=== PATIENT | female | born 1970 | race Caucasian/White ===

== ENCOUNTER → 2016-10-27 | Outpatient (CLI) | payer BC, OTHER ==
--- NOTE | 2016-10-28 10:23 | MRI ---
EXAM DESCRIPTION: Brain w/wo Contrast CLINICAL HISTORY: MS COMPARISON: None TECHNIQUE: Multiplanar, multi sequence MR images of the head are obtained with and without IV gadolinium contrast using standard imaging protocol. MS imaging protocol was performed. FINDINGS: The midline structures are not displaced. Sulci are age appropriate. The lateral, third, and fourth ventricles are normal in size, shape, and anatomic positioning. Normal palacios-white differentiation is seen. Normal flow voids are seen in the major intracranial vessels including the dural venous sinuses. There is an asymmetric 2.0 x 1.4 cm area of increased T2 signal in the left posterior fossa inferior to the cerebellopontine angle region is stable from previous exam without abnormal area of enhancement. This is unchanged from previous exam. No abnormal extra-axial fluid collections are seen. There are less than 10 foci of increased FLAIR signal in the periventricular white matter and white matter of the centrum semiovale measuring less than 4 mm relatively stable and size and number compared previous. The corpus callosum is unremarkable. No abnormal signal is seen in the marie or brachium pontis region. There are no abnormal areas of enhancement. No black holes are identified. The pituitary is unremarkable. There is mild mucosal thickening in the left frontal sinus and posterior sphenoid sinus region. The visualized orbits and mastoid air cells are unremarkable. IMPRESSION: Minimal periventricular white matter signal changes are seen. This is unchanged from previous exam in a patient with clinical history of multiple sclerosis. No new lesions or active enhancing demyelinating process is seen. Question prominent, asymmetric CSF space versus arachnoid cyst in the inferior left posterior fossa stable from previous. Mild subacute chronic sinus disease. Electronically signed by: Isaias Arreola MD 10/28/2016 10:22 AM CDT
== END | disposition home or self-care (01) ==
LOC: MRI 09:01
PROVIDERS: ATTEND Psychiatry & Neurology Neurology
DX: G35 Multiple sclerosis (principal)

== ENCOUNTER 2018-09-06 08:29 | Emergency (ER) | payer BC ==
[2018-09-06 09:51] VITALS: O2SAT 97
[2018-09-06] MEDS ORDERED: DEXAMETHASONE INJ 10 MG/ML VIAL IV ONE (10:31)
--- NOTE | 2018-09-06 12:04 | ED.PDOC ---
History of Present Illness - General Chief Complaint: General Stated Complaint: Blurred/double vision Time Seen by Provider: 09/06/18 08:44 Source: patient Exam Limitations: no limitations - History of Present Illness Initial Comments: The patient is a 48-year-old female with a history of multiple sclerosis presenting after 18 hours of some blurry vision. More specifically last night symptoms started with some milddouble vision or diplopia. This morning she woke up and it was a little more severe. When each eyes covered she can actually see quite well. Pupils are symmetrical and reactive. No eye pain. No fever. No proptosis. No sinus pain. No history of any orbital trauma. No history of any orbital cancers. No history of any cavernous sinus thrombosis. No headache. On close exam, she does have some difficulty with adduction of the right eye. Severity: mild Improving Factors: nothing Worsening Factors: nothing Associated Symptoms: denies symptoms Allergies/Adverse Reactions: Allergies NO KNOWN ALLERGY Allergy (Verified 09/06/18 08:43) Home Medications: Ambulatory Orders Alprazolam 0.25 mg PO TID PRN 09/06/18 Duloxetine HCl 60 mg PO DAILY 09/06/18 Gabapentin 600 mg PO TID PRN 09/06/18 Glatiramer Acetate 40 mg IM WKLY 09/06/18 Review of Systems - Review of Systems Constitutional: States: no symptoms reported EENTM: States: see HPI Respiratory: States: no symptoms reported Cardiology: States: no symptoms reported Gastrointestinal/Abdominal: States: no symptoms reported Genitourinary: States: no symptoms reported Musculoskeletal: States: no symptoms reported Skin: States: no symptoms reported Neurological: States: no symptoms reported Endocrine: States: no symptoms reported All other Systems: No Change from Baseline Past Medical History (General) - Patient Medical History Hx Stroke: No Hx Congestive Heart Failure: No Hx Diabetes: No Hx Gastroesophageal Reflux: Yes Hx MRSA: No - Vaccination History Hx Tetanus, Diphtheria Vaccination: No Hx Influenza Vaccination: No Hx Pneumococcal Vaccination: No - Social History Hx Tobacco Use: Yes Hx Alcohol Use: Yes - Social use - Female History Patient is a Female of Child Bearing Age (10 -59 yrs old): Yes - Had cervical ablation; no longer has menstrual cycles Patient : No Family Medical History - Family History Mother Family History: No Known Living Status: Still Living Physical Exam - Physical Exam General Appearance: Alert, Comfortable, No apparent distress Eye Exam: bilateral other - see history of present illness Ears, Nose, Throat: hearing grossly normal, normal pharynx Neck: full range of motion, supple Respiratory: lungs clear, normal breath sounds, no respiratory distress, no accessory muscle use Cardiovascular/Chest: normal peripheral pulses, regular rate, rhythm, no edema Peripheral Pulses: radial,right: 2+, radial,left: 2+, dorsalis pedis,right: 2+, dorsalis pedis,left: 2+ Gastrointestinal/Abdominal: non tender, soft Rectal Exam: deferred Back Exam: no CVA tenderness, no vertebral tenderness Extremity: normal range of motion, non-tender, normal inspection, no pedal edema, normal capillary refill Neurologic: alert, normal mood/affect, oriented x 3, other - see history of present illness Skin Exam: normal color Comments: Vital Signs - 24 hr 09/06/18 09/06/18 09/06/18 08:35 09:30 10:00 Temperature 97.9 F 97.5 F L Pulse Rate [ 80 70 68 Left Radial] Respiratory 18 18 20 Rate Blood Pressure 124/82 144/76 142/75 [Left Arm] O2 Sat by Pulse 99 97 98 Oximetry 09/06/18 10:50 Temperature Pulse Rate [ 67 Left Radial] Respiratory 20 Rate Blood Pressure 161/86 [Left Arm] O2 Sat by Pulse 97 Oximetry Progress - Progress Progress: 09/06/18 12:05 the patient is a 48-year-old female with a history of multiple sclerosis presenting to emergency room secondary to diplopia. Laboratory work is reassuring. No other significant symptoms. No evidence of any affect on visual acuity. she may find an eye patch helpful. The patient has been discussed with her neurologist, Dr. Orourke. She is being given 10 mg of dexamethasone IV. She is going to be written for a high-dose dexamethasone taper for the next 6 days. She needs to contact Dr. Orourke's office and set up an appointment for the coming week. ER warnings were given for any significant worsening. Keep routine follow-up with primary care doctor otherwise. - Results/Orders Results/Orders: Laboratory Tests 09/06/18 09/06/18 09/06/18 09:00 09:00 09:00 WBC 6.7 RBC 4.83 Hgb 13.8 Hct 41.9 MCV 86.8 MCH 28.6 MCHC 33.0 RDW 14.4 Plt Count 200 MPV 8.7 Absolute Neuts (auto) 4.30 Absolute Lymphs (auto) 1.80 Absolute Monos (auto) 0.40 Absolute Eos (auto) 0.20 Absolute Basos (auto) 0.10 Neutrophils % 63.1 Lymphocytes % 26.4 Monocytes % 6.2 Eosinophils % 3.2 Basophils % 1.1 PT 9.3 INR 0.93 PTT (SP) 24.0 Sodium 139 Potassium 3.7 Chloride 103 Carbon Dioxide 26 Anion Gap 13.7 BUN 15 Creatinine 0.73 BUN/Creatinine Ratio 20.5 H Random Glucose 123 H Serum Osmolality 279.7 Calcium 9.3 Magnesium 1.8 Total Bilirubin 0.4 AST 23 ALT 32 Alkaline Phosphatase 104 Serum Total Protein 7.6 Albumin 3.9 Globulin 3.7 H Albumin/Globulin Ratio 1.1 TSH 0.95 Urine Color Urine Appearance Urine pH Ur Specific [place] Urine Protein Urine Glucose (UA) Urine Ketones Urine Blood Urine Nitrite Urine Bilirubin Urine Urobilinogen Ur Leukocyte Esterase Urine RBC Urine WBC Ur Epithelial Cells Urine Bacteria Urine Yeast 09/06/18 09:10 WBC RBC Hgb Hct MCV MCH MCHC RDW Plt Count MPV Absolute Neuts (auto) Absolute Lymphs (auto) Absolute Monos (auto) Absolute Eos (auto) Absolute Basos (auto) Neutrophils % Lymphocytes % Monocytes % Eosinophils % Basophils % PT INR PTT (SP) Sodium Potassium Chloride Carbon Dioxide Anion Gap BUN Creatinine BUN/Creatinine Ratio Random Glucose Serum Osmolality Calcium Magnesium Total Bilirubin AST ALT Alkaline Phosphatase Serum Total Protein Albumin Globulin Albumin/Globulin Ratio TSH Urine Color Yellow Urine Appearance Clear Urine pH 7.0 Ur Specific [place] 1.015 Urine Protein Negative Urine Glucose (UA) Negative Urine Ketones Negative Urine Blood Trace-intact H Urine Nitrite Negative Urine Bilirubin Negative Urine Urobilinogen 0.2 Ur Leukocyte Esterase Negative Urine RBC 1-3 Urine WBC 1-3 Ur Epithelial Cells 1-3 Urine Bacteria Rare Urine Yeast Rare Departure - Departure Clinical Impression: Multiple sclerosis exacerbation Disposition: Discharge to Home or Self Care Condition: Fair Departure Forms: ED Discharge - Pt. Copy, Patient Portal Self Enrollment Instructions: Multiple Sclerosis, Adult (DC) Diet: regular diet Activity: increase activity as tolerated Referrals: Gricelda Louise FNP [Primary Care Provider] - 1-2 Weeks Home Medications: Ambulatory Orders Alprazolam 0.25 mg PO TID PRN 09/06/18 Duloxetine HCl 60 mg PO DAILY 09/06/18 Gabapentin 600 mg PO TID PRN 09/06/18 Glatiramer Acetate 40 mg IM WKLY 09/06/18 Additional Instructions: the patient is a 48-year-old female with a history of multiple sclerosis presenting to emergency room secondary to diplopia. Laboratory work is reassuring. No other significant symptoms. No evidence of any affect on visual acuity. she may find an eye patch helpful. The patient has been discussed with her neurologist, Dr. Orourke. She is being given 10 mg of dexamethasone IV. She is going to be written for a high-dose dexamethasone taper for the next 6 days. She needs to contact Dr. Orourke's office and set up an appointment for the coming week. ER warnings were given for any significant worsening. Keep routine follow-up with primary care doctor otherwise.
[2018-09-06 12:43] VITALS: BP 137/77; TEMP 97.1
== END 2018-09-06 12:30 | disposition home or self-care (01) ==
LOC: ER 08:29
DX: G35 Multiple sclerosis (principal); H53.2 Diplopia; K21.9 Gastro-esophageal reflux disease without esophagitis; Z87.891 Personal history of nicotine dependence; Z79.899 Other long term (current) drug therapy
CPT/HCPCS: 36415; 80053; 81001; 83735; 84443; 85025; 85610; 85730; J1100

== ENCOUNTER → 2018-12-28 | Outpatient (CLI) | payer BC | LOC: RAD 09:06 | PROVIDERS: ATTEND Orthopaedic Surgery | DX: M79.641 Pain in right hand (principal); M79.642 Pain in left hand ==

== ENCOUNTER → 2019-01-07 | Outpatient (CLI) | payer BC | LOC: LAB.O 10:39 | PROVIDERS: ATTEND Orthopaedic Surgery | DX: Z01.818 Encounter for other preprocedural examination (principal) ==

== ENCOUNTER 2019-01-23 05:37 | Day surgery (SDC) | payer BC ==
--- NOTE | 2019-01-22 15:05 | HP ---
CHIEF COMPLAINT: Left hand numbness. HISTORY OF PRESENT ILLNESS: Ms. Guillen is a 48-year-old female with a history of numbness in the hand. She says she has not had any trauma related to this. She states the pain she is having associated with this has been there for over a year. She tried anti-inflammatories and bracing. The numbness does awaken her at night and the baseline pain seems to be at about a 5. She has increases in intensity beyond that. She says the neurologic symptoms seem to be isolated to the radial aspect of the hand. Aggravating factors include sawmill tally clerk and use of the hand. Alleviating factors include not using the hand. It is causing her dysfunction and to that end, she has requested operative intervention. After discussing the risks, benefits and alternatives to carpal tunnel release, she has given informed consent for that. PAST SURGICAL HISTORY: None. MEDICATIONS: 1. Copaxone. PAIN CONTRACT: None. ALLERGIES: NO KNOWN DRUG ALLERGIES. CODE STATUS: Full code. IMMUNIZATIONS: Up to date. SOCIAL HISTORY: The patient does not drink or use any illicit drugs. She does smoke. FAMILY HISTORY: None pertinent to today's complaint. REVIEW OF SYSTEMS: Negative except as indicated in the History of Present Illness. HEENT: The patient reports no symptoms. RESPIRATORY: The patient reports no symptoms. CARDIOVASCULAR: The patient reports no symptoms. GASTROINTESTINAL: The patient reports no symptoms GENITOURINARY: The patient reports no symptoms. MUSCULOSKELETAL: Negative except as noted in History of Present Illness. SKIN: The patient reports no symptoms. NEUROLOGIC: The patient reports no symptoms. PHYSICAL EXAMINATION: VITAL SIGNS: Blood pressure 148/80. Pulse 81. Height 5'4". Weight 227 pounds. MENTAL STATUS: The patient is awake, alert, and is able to give a good history and participate in the physical. The patient is oriented to person, place and time. SKIN: Normal tone and turgor. MUSCULOSKELETAL: She has positive carpal compression test. She has intact sensation proximal to the wrist. She has full range of motion in all digits as well as the wrist. She has no deformity, no crepitus and no malalignment. She has full sawmill tally clerk strength. At this point, she has numbness at rest in the thumb. RADIOLOGY: My interpretation of the x-rays shows no acute bony abnormality. ASSESSMENT: 1. Carpal tunnel syndrome. PLAN: The plan at this point is for carpal tunnel release. We have discussed the risks, benefits, and alternatives to that and the patient has given informed consent. #[id number] [facility]
[2019-01-23] MEDS ORDERED: ceFAZolin SODIUM 1 GM VIAL ONE (05:59)
[2019-01-23] MEDS ORDERED: SODIUM CHL 0.9% 100ML MINI-BAG 100 ML IVPB ONE (05:59)
[2019-01-23] MEDS ORDERED: LACTATED RINGERS 1,000 ML ONE (05:59)
[2019-01-23] MEDS ORDERED: BUPIVACAINE 0.25% INJ 30 ML VIAL INJ ONE (06:38)
[2019-01-23] MEDS ORDERED: LIDOCAINE 1% 10 ML VIAL INJ ONE ×2 (06:38→10:00)
[2019-01-23] MEDS ORDERED: fentaNYL CITRATE INJ 50 MCG/ML AMP ONE (06:40)
[2019-01-23] MEDS ORDERED: MIDAZOLAM INJ 2 MG/2 ML VIAL ONE (06:40)
[2019-01-23] MEDS: ceFAZolin SODIUM 1 GM VIAL ONE ×2 (07:29→07:38)
[2019-01-23] MEDS: VANCOMYCIN HCL INJ 1,000 MG VIAL IVPB ONE ×2 (07:29→07:38)
--- NOTE | 2019-01-23 07:49 | OP ---
DATE OF PROCEDURE: 01/23/19 PREOPERATIVE DIAGNOSIS: 1. Carpal tunnel syndrome, left hand. POSTOPERATIVE DIAGNOSIS: 1. Carpal tunnel syndrome, left hand. PROCEDURE: 1. Carpal tunnel release. SURGEON: Percy Alfaro MD. MARBLE MACHINE TENDER: Deric Aguilar CST, SA-C. ANESTHESIA: Local with sedation. COMPLICATIONS: None. FINDINGS: Thickening of the transverse carpal ligament. INDICATION: Ms. Guillen has a history of numbness and tingling in the distribution of the median nerve. She has this going on for quite some time and has failed to gain relief with conservative measures. Because of her failure of relief, she has requested operative intervention. After discussing the risks, benefits and alternatives to that, the patient has given informed consent for carpal tunnel release. PROCEDURE: The patient was brought to the Operating Room and placed in the supine position. Sedation was administered and local anesthetic was injected into the operative area under sterile conditions. After the injection of anesthetic, the arm was sterilely prepped and draped. A longitudinal incision was made directly overlying the transverse carpal ligament and blunt dissection was carried down to the ligament. The transverse carpal ligament was sharply transected along its length and a [place] elevator was used to ensure complete release of the ligament. Once release had been confirmed, the wound was thoroughly irrigated and the wound was closed with Nylon suture. A sterile dressing was placed and the patient was taken to the Day Surgery Unit. POSTOPERATIVE PLAN: The patient has been encouraged to do range of motion of the digits and will followup with us in two days. #[id number] [facility]
[2019-01-23 08:52] VITALS: BP 143/93; TEMP 96.7; O2SAT 99
[2019-01-23] MEDS ORDERED: PROPOFOL 200 MG/20 ML VIAL IV ONE (10:00)
== END 2019-01-23 08:25 | disposition home or self-care (01) ==
LOC: AMB 05:37
PROVIDERS: ATTEND Orthopaedic Surgery
DX: G56.02 Carpal tunnel syndrome, left upper limb (principal); F17.200 Nicotine dependence, unspecified, uncomplicated; Z79.899 Other long term (current) drug therapy
CPT/HCPCS: 01810; 64721; 80307; J0690; J2250; J3010; J3370; J3490; J7050; J7120

== ENCOUNTER 2019-02-27 05:38 | Day surgery (SDC) | payer BC ==
--- NOTE | 2019-02-25 08:28 | HP ---
CHIEF COMPLAINT: Right hand numbness. HISTORY OF PRESENT ILLNESS: Ms. Guillen is a 48-year-old female with a history of numbness in both hands. She has had carpal tunnel release on the left. She has had symptoms on the right that have been going on for at least 2 years. She says it is painful in addition to the numbness and tingling. The pain is about a 3. It happens everyday and there are no particular aggravating factors. She also unfortunately has had no alleviating factors. Because of her ongoing symptoms, she has tried conservative measures, however, she has failed to gain relief. After discussing the risks, benefits and alternatives to operative therapy, she has given informed consent for carpal tunnel release. PAST SURGICAL HISTORY: 1. Left carpal tunnel release. MEDICATIONS: 1. Duloxetine. 2. Tizanidine. 3. Dexilant. 4. Gabapentin. 5. Copaxone. PAIN CONTRACT: None. ALLERGIES: NO KNOWN DRUG ALLERGIES. CODE STATUS: Full code. IMMUNIZATIONS: Up to date. SOCIAL HISTORY: The patient smokes about a pack a day, does not drink, or use any illicit drugs. FAMILY HISTORY: None pertinent to today's complaint. REVIEW OF SYSTEMS: Negative except as indicated in the History of Present Illness. HEENT: The patient reports no symptoms. RESPIRATORY: The patient reports no symptoms. CARDIOVASCULAR: The patient reports no symptoms. GASTROINTESTINAL: The patient reports no symptoms GENITOURINARY: The patient reports no symptoms. MUSCULOSKELETAL: Negative except as noted in History of Present Illness. SKIN: The patient reports no symptoms. NEUROLOGIC: The patient reports no symptoms. PHYSICAL EXAMINATION: VITAL SIGNS: Blood pressure 143/87. Pulse 83. Height 5'3". Weight 229 pounds. MENTAL STATUS: The patient is awake, alert, and is able to give a good history and participate in the physical. The patient is oriented to person, place and time. SKIN: Normal tone and turgor. MUSCULOSKELETAL: She has positive carpal compression test and also positive Tinel's. She has intact digital media analyst strength. The hand is warm and well perfused. She has full range of motion of all the digits, the elbow and the shoulder. There is no deformity. Skin is intact throughout. The contralateral side shows negative Tinel's and negative carpal compression test. She has intact sensation. It is warm and well perfused. She has full digital media analyst strength. RADIOLOGY: My read of the x-rays shows no acute bony abnormality. ASSESSMENT: 1. Carpal tunnel syndrome. PLAN: The plan at this point is for carpal tunnel release. We have discussed the risks, benefits, and alternatives to that and the patient has given informed consent. #[id number] [facility]TDD
[2019-02-27] MEDS ORDERED: LACTATED RINGERS 1,000 ML ONE (07:14)
[2019-02-27] MEDS ORDERED: SODIUM CHL 0.9% 100ML MINI-BAG 100 ML IVPB ONE (07:15)
[2019-02-27] MEDS ORDERED: ceFAZolin SODIUM 1 GM VIAL ONE ×2 (07:15→11:27)
[2019-02-27] MEDS ORDERED: PROPOFOL 200 MG/20 ML VIAL IV ONE (10:00)
[2019-02-27] MEDS ORDERED: LIDOCAINE 1% 10 ML VIAL INJ ONE (10:00)
[2019-02-27 10:46] VITALS: O2SAT 96
[2019-02-27] MEDS ORDERED: BUPIVACAINE 0.25% INJ 30 ML VIAL INJ ONE (11:27)
[2019-02-27] MEDS ORDERED: VANCOMYCIN HCL INJ 1,000 MG VIAL IVPB ONE (11:27)
[2019-02-27] MEDS ORDERED: MIDAZOLAM INJ 2 MG/2 ML VIAL ONE (11:46)
[2019-02-27] MEDS: LIDOCAINE 1% 10 ML VIAL INJ ONE ×2 (12:05→12:18)
[2019-02-27 12:53] VITALS: BP 127/80; TEMP 97.1
--- NOTE | 2019-02-28 08:03 | OP ---
DATE OF PROCEDURE: 02/27/19 PREOPERATIVE DIAGNOSIS: 1. Carpal tunnel syndrome, right hand. POSTOPERATIVE DIAGNOSIS: 1. Carpal tunnel syndrome, right hand. PROCEDURE: 1. Right carpal tunnel release. SURGEON: Percy Alfaro MD. JOURNEYMAN PIPEFITTER: Deric Aguilar CST, SA-C. ANESTHESIA: Local with sedation. COMPLICATIONS: None. FINDINGS: Thickened transverse carpal ligament and narrowing of the median nerve across the carpal tunnel. INDICATION: Merry has a history of both pain and numbness in the hand. Because of the pain and numbness and the refractory nature, she has undergone left carpal tunnel release. She is also requesting right carpal tunnel release. After discussing the risks, benefits and alternatives to that, the patient has given informed consent for carpal tunnel release. PROCEDURE: The patient was brought to the Operating Room and placed in the supine position. Sedation was administered and local anesthetic was injected into the operative area under sterile conditions. After the injection of anesthetic, the arm was sterilely prepped and draped. A longitudinal incision was made directly overlying the transverse carpal ligament and blunt dissection was carried down to the ligament. The transverse carpal ligament was sharply transected along its length and a [place] elevator was used to ensure complete release of the ligament. Once release had been confirmed, the wound was thoroughly irrigated and the wound was closed with Nylon suture. A sterile dressing was placed and the patient was taken to the Day Surgery Unit. POSTOPERATIVE PLAN: The patient has been encouraged to do range of motion of the digits and will followup with us in approximately two days. #[id number] [facility]TDD
== END 2019-02-27 13:35 | disposition home or self-care (01) ==
LOC: AMB 05:38
PROVIDERS: ATTEND Orthopaedic Surgery
DX: G56.01 Carpal tunnel syndrome, right upper limb (principal); F17.210 Nicotine dependence, cigarettes, uncomplicated; Z79.899 Other long term (current) drug therapy
CPT/HCPCS: 01810; 64721; 80307; 81025; 87070; 87077; J0690; J2250; J3370; J3490; J7050; J7120

== ENCOUNTER → 2019-09-26 | Outpatient (CLI) | payer BC ==
--- NOTE | 2019-09-26 12:13 | MRI ---
CLINICAL HISTORY: 49 years Female, [place] COMPARISON: MRI of the brain dated 10/27/2016. TECHNIQUE: Multiplanar multiecho imaging of the brain was performed before and after the administration of intravenous contrast. FINDINGS: Stable periventricular FLAIR hyperintense foci in the bilateral frontal and parietal lobes, compared to prior examination. No new lesions are visualized. None of these lesions demonstrate postcontrast enhancement or restricted diffusion. Stable 2 x 1.4 cm area of T2 hyperintensity in the left posterior fossa beneath the cerebellopontine angle, compared to prior examination. No acute major vascular territorial infarct or acute intraparenchymal hemorrhage. No intra-axial or extra-axial fluid collections are identified. No space-occupying lesion is identified. The cisterns and ventricles appear normal in caliber. The sella and suprasellar regions demonstrate no gross abnormality. The structures of the posterior fossa are intact. Mucosal opacification of the left frontal sinus. Small left mastoid effusion is again noted. The globes are intact bilaterally. Review of the bones demonstrates no gross abnormality. IMPRESSION: Stable periventricular white matter FLAIR hyperintense foci compared to prior examination dated 10/27/2016. No new or active demyelinating lesions. Stable T2 hyperintensity most likely representing prominent CSF space versus arachnoid cyst in the left posterior fossa inferior to the cerebellopontine angle. Electronically signed by: Brenda Ivy MD 09/26/2019 12:12 PM CDT
--- NOTE | 2019-09-26 12:18 | MRI ---
EXAM DESCRIPTION: Cervical Spine w/wo Contrast CLINICAL HISTORY: 49 years Female, [place] COMPARISON: None. TECHNIQUE: Multiplanar multiecho imaging of the cervical spine was performed before and after gadolinium administration. FINDINGS: The vertebral body heights are well-maintained with no acute compression deformity. The visualized spinal cord appears normal with no intrinsic signal abnormality. C2-C3: Disc desiccation with no disc herniation. No canal stenosis or neural foraminal narrowing. C3-C4: Disc desiccation and mild loss of disc height. 2 mm diffuse disc bulge with no significant central canal stenosis. No neural foraminal narrowing. C4-C5: Disc desiccation and loss of disc height. 4 mm posterior disc osteophyte complex with mild central canal stenosis. The thecal sac measures 1 cm. Mild right neural foraminal narrowing is noted secondary to uncovertebral joint arthropathy. C5-C6: Disc desiccation and loss of disc height. 4 mm disc osteophyte complex with resultant mild central canal stenosis with the thecal sac measuring 9 mm. No significant neural foraminal narrowing is identified. C6-C7: 4 mm retrolisthesis of C6 over C7. 4 mm posterior disc osteophyte complex with resultant mild central canal stenosis with the thecal sac measuring 1 cm. No significant neural foraminal narrowing. C7-T1: No disc herniation. No significant canal stenosis or neural foraminal narrowing. Incidental note is made of a 1.5 cm T2 hyperintense lesion in the posterior aspect of the left thyroid lobe. Remainder of the visualized prevertebral and paravertebral soft tissues appear normal. IMPRESSION: 1. No abnormal lesions are identified in the cervical spinal cord to suggest multiple sclerosis. 2. Mild multilevel degenerative disc disease as described above. 3. 1.5 cm left thyroid nodule. Thyroid ultrasound is recommended for further evaluation. Electronically signed by: Brenda Ivy MD 09/26/2019 12:17 PM CDT
== END ==
LOC: MRI 10:00
PROVIDERS: ATTEND Psychiatry & Neurology Neurology
DX: G35 Multiple sclerosis (principal); M50.31 Other cervical disc degeneration, high cervical region; M50.321 Other cervical disc degeneration at C4-C5 level; M50.322 Other cervical disc degeneration at C5-C6 level; E04.1 Nontoxic single thyroid nodule

== ENCOUNTER → 2019-10-24 | Outpatient (CLI) | payer BC ==
--- NOTE | 2019-10-24 15:22 | CT ---
PROVIDED CLINICAL HISTORY/REASON FOR EXAM: PVD TECHNIQUE: Volumetric CT angiographic data was obtained of the abdomen, pelvis, and lower extremities following the administration of IV contrast utilizing the CT angiography protocol. Multiplanar reformats. 3-D MIP images also submitted. This exam was performed according to our departmental dose-optimization program, which includes automated exposure control, adjustment of the mA and/or kV according to patient size and/or use of iterative reconstruction technique. COMPARISON STUDY: October 23, 2018 FINDINGS: Visualized lung bases are grossly unremarkable. Hepatic steatosis. No suspicious hepatic lesion. No biliary dilatation. The gallbladder, spleen, and pancreas are unremarkable. Benign bilateral adrenal adenomas. Normal kidneys. No hydronephrosis. No urolithiasis. The bladder is decompressed. Scattered colonic diverticula without focal inflammatory change. No evidence of bowel obstruction. No findings to suggest appendicitis. Normal appendix. No adenopathy. No focal fluid collection. No free air. No acute or suspicious osseous abnormality. Scattered degenerative changes present. VASCULATURE Normal caliber abdominal aorta. The origins of the mesenteric and renal arteries are widely patent Right Common iliac: No hemodynamically significant stenosis. External iliac: No hemodynamically significant stenosis. Internal iliac:No hemodynamically significant stenosis. Left Common iliac: No hemodynamically significant stenosis. External iliac: No hemodynamically significant stenosis. Internal iliac:No hemodynamically significant stenosis. RIGHT LOWER EXTREMITY: Common femoral: No hemodynamically significant stenosis. Superficial femoral: No hemodynamically significant stenosis. Profunda femoral: No hemodynamically significant stenosis. Popliteal: No hemodynamically significant stenosis. Run off: Normal three vessel runoff. LEFT LOWER EXTREMITY: Common femoral: No hemodynamically significant stenosis. Superficial femoral: No hemodynamically significant stenosis. Profunda femoral: No hemodynamically significant stenosis. Popliteal: No hemodynamically significant stenosis. Run off: Normal three vessel runoff. IMPRESSION: Normal three vessel runoff bilaterally. No hemodynamically significant stenosis. Electronically signed by: Perry Conti MD 10/24/2019 3:21 PM CDT
== END ==
LOC: CT 10:00
PROVIDERS: ATTEND Psychiatry & Neurology Neurology
DX: I73.9 Peripheral vascular disease, unspecified (principal)

== ENCOUNTER → 2020-04-21 | Outpatient (CLI) | payer BC ==
--- NOTE | 2020-04-22 00:58 | MRI ---
EXAM DESCRIPTION: Brain w/oContrast CLINICAL HISTORY: 49 years Female, MULTIPLE SCLEROSIS COMPARISON: MRI brain 09/18/2019, 10/18/2016 TECHNIQUE: Multisequence, multiplanar images of the brain obtained without intravenous contrast. FINDINGS: Brain Parenchyma, Ventricles, Meninges: No restricted diffusion. No acute intracranial hemorrhage. Normal ventricles and sulci. Scattered T2 and FLAIR white matter hyperintensities in the cerebral hemispheres, minimally increased in size when compared to prior studies, 3 mm left frontal lobe and 5 mm right portillo radiata. No significant change in number Unchanged 2.1 cm CSF intensity mass just inferior to the left cerebellopontine angle, unchanged. Vascular Structures: Normal flow voids for the major intracranial arteries and dural venous sinuses. Calvarium, paranasal sinuses, mastoids, and orbits: No abnormal calvarial or skull base marrow signal changes. 6 mm polyp or mucous cyst along the medial left maxillary sinus wall. No complete opacification of the left frontal sinus. Remaining paranasal sinuses and right mastoids are clear. Tiny left mastoid tip effusion. Grossly unremarkable orbits. IMPRESSION: 1. No acute intracranial abnormality. 2. Minimal increased size but not significantly changed number of T2/FLAIR white matter hyperintensities in cerebral hemispheres. 3. Polysinusitis. 4. Tiny left mastoid tip effusion. 5. Unchanged probably arachnoid cyst just inferior to the left cerebellopontine angle. Electronically signed by: Jose Kuhn MD 04/22/2020 12:56 AM FURNITURE BUILDER
--- NOTE | 2020-04-22 01:04 | MRI ---
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 TECHNIQUE: Multisequence, multiplanar images of the cervical spine obtained without intravenous contrast. FINDINGS: Vertebrae: No acute fracture. No acute compression deformity. Straightening of the cervical spine with focal subtle kyphosis centered at C4. Normal AP alignment. No suspicious marrow signal of the cervical spine. Spinal cord: No cerebellar ectopia. Normal cord signal. Flattening of the spinal cord as detailed below. Discs, facets, spinal canal, and neural foramina: Disc desiccation the cervical spine. Mild displacement of C4-C5 through C6-7. C2-C3: No significant findings. C3-C4: Small posterior central disc osteophyte complex measuring 7 mm transverse and 3 mm AP. Mild vertebral spurring facet arthropathy. Mild spinal canal stenosis. Neuroforamina patent. C4-C5: Minimal posterior disc osteophyte complex. Mild right greater than left uncovertebral spurring. Mild facet arthropathy. Mild spinal canal stenosis with minimal flattening the ventral spinal cord. Neuroforamina patent. C5-6: There appears to be a disc extrusion containing annular fissure extending from the C5-C6 disc space to the C6-7 disc space. Unclear whether this arises from C5-C6 or C6-C7. Extrusion measures approximately 7 mm transverse, 5 mm AP, 20 CC mm in length. Mild right greater than left uncovertebral spurring. Moderate spinal canal stenosis with focal indentation ventral spinal cord. Neuroforamina are patent. C6-C7: Disc extrusion extending from C5-C6 to C6-C7 as just previously described. Mild spinal canal stenosis with minimal flattening the ventral spinal cord. Neuroforamina patent. C7-T1: No significant findings. Other findings: Unremarkable paravertebral soft tissues. T2 hyperintense nodule in left thyroid gland measuring 15 mm. 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 IMPRESSION: 1. No acute fracture. 2. No suspicious hyperintense spinal cord lesion to suggest autoimmune disorder such as multiple sclerosis. 3. Cervical spondylosis with up to moderate spinal canal stenosis and flattening/indentation of the ventral spinal cord as above. This is greatest at C5-C6 through C6-7 due to likely disc extrusion. 4. Neuroforamina patent. 5. 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 6. 15 mm left thyroid nodule. Recommend dedicated ultrasound to further evaluate. Electronically signed by: Jose Kuhn MD 04/22/2020 1:03 AM THERAPEUTIC CASE MANAGER
--- NOTE | 2020-04-22 08:46 | MRI ---
EXAM DESCRIPTION: Lumbar Spine w/o Contrast CLINICAL HISTORY: 49 years Female, INTERVERTEBRAL DISC DISORDERS WITH RADICULOPATHY THORACIC REGION COMPARISON: None. TECHNIQUE: Multisequence, multiplanar images of the lumbar spine without intravenous contrast. FINDINGS: For the purpose of this report, the designated L5-S1 disc space will be referred to as axial T2 image 3, series 501. Vertebrae: No acute fracture. Mild lordosis. Trace retrolisthesis at L2-L3 contribute by facet hypertrophy. Modic type degenerative endplate changes at L2-L3 and probably L5-S1. Slight dextrocurvature centered at L2-L3. Spinal cord: Termination of the conus medullaris at T12-L1. Normal nerve roots of the cauda equina. Discs, facets, spinal canal, and neural foramina: Disc desiccation at L2-3 and below. Moderate L2-L3 disc space narrowing. L1-L2: Small disc bulge. Moderate facet arthropathy and trace facet joint effusions. Spinal canal and neuroforamina patent. L2-3: Minimal uncovering posterior disc space. Moderate disc bulge. Moderate facet arthropathy and small facet joint effusions. Mild spinal canal stenosis. Mild bilateral neural foraminal stenoses. L3-4: Minimal disc bulge. Moderate facet arthropathy and small facet joint effusions. Spinal canal patent. Mild bilateral neural foraminal stenoses. L4-5: No disc bulge. Moderate facet arthropathy small facet joint effusions. Spinal canal patent. Mild bilateral neural foraminal stenosis. L5-S1: No disc bulge. Moderate facet arthropathy. Spinal canal and neuroforamina patent. Paraspinous soft tissues: Unremarkable. IMPRESSION: 1. No acute fracture. 2.Lumbar spondylosis greatest at L2-L3 where there is trace retrolisthesis and Modic type degenerative endplate changes. 3. L2-3 mild spinal canal stenosis. 4. Multilevel neural foraminal compromise as above. Electronically signed by: Jose Kuhn MD 04/22/2020 8:44 AM [facility]
--- NOTE | 2020-04-22 12:42 | MRI ---
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 TECHNIQUE: Multisequence, multiplanar images of the thoracic spine without intravenous contrast. FINDINGS: Vertebrae: No acute fracture. Mild thoracic kyphosis. Scattered vertebral body hemangiomas. Normal AP alignment. Slight dextrocurvature centered at T6-T7. Spinal cord: Normal cord signal. Flattening of the ventral spinal cord at T6-7 secondary to spondylosis as detailed below. Discs, facets, spinal canal and neural foramina: Disc desiccation throughout the thoracic spine to the level of T10-T11. Disc space heights maintained. Multiple small disc protrusions, greatest and right eccentric at T6-T7 measuring no greater than 2 to 3 mm in thickness AP. This does contribute to mild flattening of the right ventral spinal cord. No spinal canal compromise. Neuroforamina predominantly patent. Paraspinous soft-tissues: Unremarkable. IMPRESSION: 1. No acute fracture. 2. Normal cord signal. 2. Thoracic spondylosis as above. Electronically signed by: Jose Kuhn MD 04/22/2020 12:41 PM [facility]
== END ==
LOC: MRI 09:58
PROVIDERS: ATTEND Psychiatry & Neurology Neurology
DX: M51.14 Intervertebral disc disorders with radiculopathy, thoracic region (principal); M51.16 Intervertebral disc disorders with radiculopathy, lumbar region; M47.24 Other spondylosis with radiculopathy, thoracic region; M47.26 Other spondylosis with radiculopathy, lumbar region; M48.061 Spinal stenosis, lumbar region without neurogenic claudication; M48.02 Spinal stenosis, cervical region; M47.892 Other spondylosis, cervical region; E04.1 Nontoxic single thyroid nodule; J01.90 Acute sinusitis, unspecified; H74.8X2 Other specified disorders of left middle ear and mastoid; G93.9 Disorder of brain, unspecified